=== PATIENT | male | born 1955 | race Caucasian/White ===

== ENCOUNTER 2017-01-26 04:27 | Inpatient (IN) ==
--- NOTE | 2017-01-21 09:35 | EKG Report ---
Test Performed on : 01/21/2017 09:14:28 AM Test Reason : pat Blood Pressure : / mmHG Vent. Rate : 071 BPM Atrial Rate : 071 BPM P-R Int : 158 ms QRS Dur : 084 ms QT Int : 398 ms P-R-T Axes : 071 038 043 degrees QTc Int : 432 ms Normal sinus rhythm. Low voltage QRS Borderline ECG When compared with ECG of 07-APR-2016 09:56, No significant change was found Confirmed by Prakash Dawkins MD ([id number]) on 01/21/2017 8:33:47 PM
[2017-01-21 10:13] LABS: HEMATOCRIT 42.5 % (42.0-52.0); HEMOGLOBIN 15.4 g/dL (14.0-18.0); MCH 35.5 PG (27-31); MCHC 36.2 g/dL (33-37); MCV 97.9 FL (81-99); MPV 9.4 FL (7.4-10.4); RBC 4.34 XMIL (4.7-6.1)
[2017-01-21 10:43] LABS: AGAP 15; BUN 19 mg/dL (8-22); CALCIUM 9.3 mg/dL (8.8-10.2); CHLORIDE 100 mmol/L (98-107); COSMO 274; SODIUM 136 mmol/L (136-145); TCO2 21 mmol/L (25-35)
[2017-01-26] MEDS ORDERED: PEPCID ONE (05:40)
[2017-01-26] MEDS ORDERED: KEFZOL 1 GM/D5W 1 GM/50 ML IVPB ONE (05:40)
[2017-01-26] MEDS ORDERED: REGLAN ONE (05:40)
[2017-01-26] MEDS ORDERED: LR 1,000 ML ONE ×2 (05:40→09:38)
[2017-01-26] MEDS ORDERED: VERSED ONE (06:19)
[2017-01-26] MEDS ORDERED: XYLOCAINE-MPF 2% ONE (06:19)
[2017-01-26] MEDS ORDERED: FENTANYL ONE (06:20)
[2017-01-26] MEDS ORDERED: DIPRIVAN 1% ONE (06:20)
[2017-01-26] MEDS ORDERED: QUELICIN (DOSE) ONE (06:20)
[2017-01-26] MEDS ORDERED: NORCURON ONE (06:20)
[2017-01-26] MEDS ORDERED: NEO-SYNEPHRINE ONE (06:20)
[2017-01-26] MEDS ORDERED: HEPARIN ONE (06:24)
[2017-01-26] MEDS ORDERED: NS 1,000 ML ONE (06:24)
[2017-01-26] MEDS ORDERED: XYLOCAINE 1% ONE (06:25)
[2017-01-26] MEDS ORDERED: NITROGLYCERIN 50 MG/D5W 50 MG/250 ML IV.SOLN ONE (06:33)
[2017-01-26] MEDS ORDERED: NS 500 ML ONE (06:35)
[2017-01-26] MEDS ORDERED: ROBINUL ONE ×2 (07:40→09:01)
[2017-01-26] MEDS ORDERED: NEOSTIGMINE ONE (07:40)
[2017-01-26] MEDS ORDERED: HEPARIN (DOSE) ONE (07:45)
[2017-01-26] MEDS ORDERED: DECADRON ONE (09:06)
[2017-01-26] MEDS ORDERED: ZOFRAN ONE (09:06)
[2017-01-26] MEDS ORDERED: XYLOCAINE-MPF 1%/EPI 1:200,000 ONE (09:11)
[2017-01-26] MEDS ORDERED: NEO-SYNEPHRINE 50 MG in NS 250 ML IV SCH (12:00)
[2017-01-26] MEDS ORDERED: NICODERM PATCH TD PRN (13:02)
[2017-01-26] MEDS ORDERED: ZOFRAN IV PRN (13:02)
[2017-01-26] MEDS: LR 1,000 ML IV SCH (13:44)
--- NOTE | 2017-01-26 14:38 | OPERATIVE NOTE ---
PROCEDURE DATE: 01/26/2017 PREOPERATIVE DIAGNOSIS: Critical stenosis, left carotid bulb. POSTOPERATIVE DIAGNOSIS: Critical stenosis, left carotid bulb. PROCEDURE PERFORMED: Left carotid endarterectomy with patch angioplasty. SURGEON: Sissy Urbina MD [facility] NURSING DIRECTOR: MD Dr. Osvaldo Medrano was present throughout the procedure. He assisted with exposure of the common carotid artery and its branches. He also assisted with placement of the shunt and patch angioplasty closure. ANESTHESIA: General, in addition to local anesthetic. ESTIMATED BLOOD LOSS: 100 mL. DRAINS: TLS drain, left neck. INDICATIONS: Oswaldo De is a 61-year-old white male who recently underwent noninvasive carotid studies, which suggested an 80% to 99% stenosis at the takeoff of the left internal carotid artery, which was hemodynamically significant. He is a smoker. Left carotid endarterectomy was recommended. FINDINGS: He had calcific atherosclerotic disease involving not only the bulb but more proximally in the common carotid artery. We ended up making a long arteriotomy which extended into the common carotid artery more proximally than usual so that I could remove the calcific disease in the distal common, in addition to cleaning out the bulb into the internal carotid artery. It feathered nicely distally. I used a patch to close the arteriotomy. We did use a shunt during the procedure. DESCRIPTION OF PROCEDURE: The patient was brought to the operating room, placed supine, received general anesthesia, and was intubated. I placed a roll underneath his shoulders and turned his head to the right. He received Ancef prophylactically. His left neck was prepped and draped within a sterile field. We used an [place] on the skin. We used a local anesthetic at the incision site. We made an oblique incision at the anterior border of the left sternocleidomastoid muscle with a 15 blade scalpel, and this incision was carried down through the skin into the subcutaneous tissue. We then used cautery to transect the platysma muscle and mobilized the left sternocleidomastoid muscle laterally. We identified the facial vein, divided it between hemostats, and performed a suture ligature of this vein with 3-0 silk stitches. We identified the common carotid artery proximally and isolated it with a large red vessel loop and we dissected from proximal to medial, where we identified the bifurcation. We used a large red vessel loop to isolate the superior thyroid artery and external carotid artery together. We dissected the internal carotid artery past the palpable plaque. The patient was given 6000 units of IV heparin and, after 3 minutes, we stopped the flow through the common carotid artery and its branches by using vessel loops. We made a small incision in the distal lateral common carotid artery with an 11 blade scalpel and then Rogers scissors were used to complete the arteriotomy we made sure that the arteriotomy was cut through the plaque up into the internal carotid artery and then we had to make more of a proximal arteriotomy involving the proximal common carotid artery to remove some calcific plaque in the distal common carotid artery. We had a long arteriotomy site. We did place a shunt. We placed it proximally into the common and then into the internal carotid artery. We used a shunt clamp distally and the vessel loop proximally to control this shunt. We used a [place] elevator to remove the plaque from the distal common carotid artery and we removed this plaque from proximal to distal and we felt it feathered nicely distally in the internal carotid artery. We used heparin saline and any loose debris was removed with fine forceps. We chose a 0.8 cm wide carotid arterial patch and we closed the arteriotomy site using this patch and a double-armed 6-0 Prolene stitch. Before completely closing the arteriotomy site, we removed the shunt. We allowed backbleeding through the internal and also the external carotid arteries and then we also flushed the common carotid artery. We completed the arteriotomy closure, allowed flow first through the external carotid artery and then into the internal carotid artery. We had a palpable pulse distal to the arteriotomy site in the internal carotid artery. We had to use 2 single-armed 6-0 Prolene stitches to control some bleeding from the arteriotomy site, but those were the only extra stitches we needed and, overall, we were happy with the closure. We placed a TLS drain. It was brought out through a separate stab incision at the base of the left neck. We closed the platysma muscle with a running 2-0 Vicryl stitch and then we closed the skin with 4-0 Monocryl subcuticular stitch. Dressings were applied. Plans are to wake him up in the operating room and have him go to recovery and then the ICU overnight. He tolerated the procedure well. It must be noted that we visualized the hypoglossal nerve and preserved it throughout the procedure. cc: Sissy Urbina MD
[2017-01-26] MEDS: DUONEB (A & A) INH SCH ×3 (15:33→23:15)
[2017-01-26] MEDS: CRESTOR PO SCH (21:09)
[2017-01-27] MEDS: LR 1,000 ML IV SCH (07:22)
[2017-01-27] MEDS: DUONEB (A & A) INH SCH ×5 (07:34→23:37)
--- NOTE | 2017-01-27 08:15 | PROGRESS NOTE ---
DATE: 01/27/2017 Mr. Oswaldo De is now postop day 1 from a left carotid endarterectomy with patch angioplasty. I left a TLS drain at the time of surgery and he went to the ICU. Today, he is awake, cooperative, hemodynamically satisfactory. He has no evidence of any neurologic deficit. I removed his TLS drain. We will remove his arterial line, advance his diet from clear to a regular diet, and transfer him to the floor. cc: Sissy Urbina MD
[2017-01-27] MEDS ORDERED: VALSARTAN PO SCH (09:00)
[2017-01-27] MEDS ORDERED: HYDROCHLOROTHIAZIDE PO SCH (09:00)
[2017-01-27] MEDS ORDERED: ASPIRIN EC PO SCH (09:00)
[2017-01-27] MEDS: DIOVAN PO SCH (09:10)
[2017-01-27] MEDS: SINGULAIR PO SCH (09:10)
[2017-01-27] MEDS: HYDROCHLOROTHIAZIDE PO SCH (09:10)
[2017-01-27] MEDS: ASPIRIN PO SCH (09:10)
[2017-01-27] MEDS: MOBIC PO SCH (09:10)
[2017-01-27] MEDS: CRESTOR PO SCH (21:00)
[2017-01-28 04:44] VITALS: BP 120/78
[2017-01-28] MEDS: DUONEB (A & A) INH SCH (08:15)
[2017-01-28] MEDS: SINGULAIR PO SCH (08:22)
[2017-01-28] MEDS: ASPIRIN PO SCH (08:22)
[2017-01-28] MEDS: HYDROCHLOROTHIAZIDE PO SCH (08:22)
[2017-01-28] MEDS: DIOVAN PO SCH (08:23)
[2017-01-28] MEDS: MOBIC PO SCH (08:23)
== END 2017-01-28 09:32 | disposition home or self-care (01) ==
LOC: SURHOLD 04:27 → ICU 11:36 → 4N 01-27 10:46
PROVIDERS: ADMIT Surgery; ATTEND Surgery